=== PATIENT | female | born 1960 | race Caucasian/White ===

== ENCOUNTER 2019-07-31 10:36 | Inpatient (IN) ==
[2019-07-31] MEDS ORDERED: VANCOMYCIN PER PHARMACY IV ONE (11:41)
[2019-07-31] MEDS ORDERED: cefTRIAXone 1 GM VIAL IV ONE ×2 (11:41→17:44)
[2019-07-31] MEDS ORDERED: VANCOMYCIN 2,000 MG in 0.9 % SODIUM CHLORIDE 500 ML IV ONE (12:45)
[2019-07-31 13:23] LABS: Hematocrit 40.4 % (34.1-44.9); Hemoglobin 13.6 g/dL (11.2-15.7); Mean Cell Volume 104.7 fL (80.0-100.0); Mean Corpuscular HGB Conc 33.7 g/dL (31.0-36.0); Mean Platelet Volume 8.9 fL (7.4-10.4); Platelet Count 325 K/mcL (140-440); RBC 3.86 M/mcL (3.59-5.38); Red Cell Distribution Width 12.3 % (11.5-14.5); WBC 7.6 K/mcL (4.50-11.00)
[2019-07-31 13:41] LABS: ALT/SGPT 16 U/l (0-40); AST/SGOT 17 U/l (0-37); Albumin 3.4 gm/dL (3.2-5.2); Albumin/Globulin Ratio 1.7 (1.0-2.3); Alkaline Phosphatase 61 U/L (39-117); Bilirubin,Total 0.4 mg/dL (0.0-1.0); Blood Urea Nitrogen 10 mg/dl (6-20); Calcium 9.1 mg/dl (8.6-10.4); Carbon Dioxide 23 mmol/L (22-30); Chloride 98 mmol/L (96-108); Glomerular Filtration Rate 96; Glucose 113 mg/dL (70-105)
[2019-07-31] MEDS ORDERED: ONDANSETRON 4 MG/2 ML VIAL IV ONE (13:55)
--- NOTE | 2019-07-31 13:56 | Emergency Department Note ---
Recheck HPI - General Chief Complaint: Recheck/Abnormal Lab/Rx Stated Complaint: LLE Cellulitis Recheck Time Seen by Provider: 07/31/19 10:49 Source: patient Mode of arrival: wheelchair Limitations: no limitations - History of Present Illness HPI Narrative: 59-year-old female presents for recheck of cellulitis to left lower extremity. States despite 3 days of IV antibiotics, the redness has continued to spread. States she has been getting IV vancomycin therapy. Does not seem to be helping. No fever but has had chills last day or 2. No nausea, vomiting, or diarrhea. Does have significant redness, swelling, and warmth to the left lower extremity. Associated symptoms: chills - Related Data Home Medications Medication Instructions Recorded Confirmed DULoxetine HCL [Cymbalta] 60 mg PO BID 05/23/16 07/31/19 LORazepam [Ativan] 1 mg PO TIDP PRN 05/23/16 07/31/19 Lisinopril [Zestril] 10 mg PO DAILY 05/23/16 07/31/19 Montelukast Sodium [Singulair] 10 mg PO DAILY 05/23/16 07/31/19 metFORMIN [Glucophage] 100 mg PO [facility] 05/23/16 07/31/19 Hydrochlorothiazide [Oretic] 25 mg PO DAILY 07/28/19 07/31/19 Oxybutynin Chloride [Oxybutynin 15 mg PO DAILY 07/31/19 07/31/19 Chloride ER] Previous Rx's Medication Instructions Recorded Ondansetron [Zofran ODT] 4 mg SL Q4-6HP PRN #14 tab 07/21/19 Clindamycin HCl [Cleocin] 300 mg PO TID #30 cap 07/28/19 Allergies Allergy/AdvReac Type Severity Reaction Status Date / Time Bee Pollen Allergy Severe Anaphylaxis Verified 07/28/19 14:21 doxycycline Allergy Intermediate Redness of Verified 07/31/19 10:39 Skin latex Allergy Mild Rash Verified 07/28/19 14:21 Sulfa (Sulfonamide AdvReac Intermediate Other Verified 07/28/19 14:21 Antibiotics) Amoxicillin [From Augmentin] AdvReac Mild Vomiting Verified 07/28/19 14:21 clavulanic acid AdvReac Mild Vomiting Verified 07/28/19 14:21 [From Augmentin] Review of Systems All systems ED: reviewed and negative except as stated. Past Medical History - Past Medical History [facility] Narrative: Medical History (Last Updated 07/21/19 @ 17:05 by Florencio Bethea DO) Osteoarthritis (Chronic) History of pneumonia (Chronic) Depression, major, recurrent (Chronic) Anxiety, generalized (Chronic) Hypertension, essential (Chronic) Diabetes mellitus, type 2 (Chronic) Morbid obesity (Chronic) Cellulitis (Resolved) Past Surgical History (Last Updated 07/24/19 @ 17:25 by Florencio Bethea DO) History of Saskia-en-Y gastric bypass (Chronic) History of appendectomy (Acute) History of arthroscopy of knee (Acute) History of bilateral total hip arthroplasty (Acute) History of section (Acute) History of cholecystectomy (Acute) History of hysterectomy (Acute) History of total left knee replacement (TKR) (Acute) Medical history: Reports: DM, pneumonia, other. 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 Absent: conjunctival injection ENT: Present: mucous membranes moist Chest: Present: symmetric chest wall rise Respiratory: Present: normal lung sounds bilaterally. Absent: respiratory distress, rales/crackles, accessory muscle use Cardiovascular: Present: regular rate, normal heart sounds Extremities: Absent: normal inspection (left lower extremity from foot all the way up through left groin area with redness and warmth. Has some diffuse tenderness but no specific tenderness. Skin is intact. No drainage or weeping.) Neurological: Present: alert, oriented X3 Psychiatric: Present: normal affect, normal mood Skin: Present: warm, dry, erythema (Erythema throughout left lower extremity. Please see extremity assessment) Course Course Narrative: At 1430 I did speak with the hospitalist, Dr. Peters. He would like us to get a ultrasound and then call him back with results. If the results are negative he would like us to consult with Dr. Diaz with infectious disease. At 1540 I did get ultrasound results which were negative and call Dr. Diaz. He suggest ed that we admit the patient and do further work-up to determine whether or not this is cellulitis for sure as her white count is normal and her vital signs are stable. He suggested we get a CT scan of the lower extremity. I did call Dr. Peters back. He wants us to get a CT while here in the ER. @ 1750 Dr. peters accepts pt and Dr. Diaz will consult Vital Signs Temperature 98.3 F 07/31/19 10:42 Pulse Rate 87 07/31/19 10:42 Respiratory Rate 07/31/19 10:42 Blood Pressure 131/83 07/31/19 10:42 Pulse Oximetry (%) 97 07/31/19 10:42 Temperature 98.3 F 07/31/19 10:42 Pulse Rate 88 07/31/19 15:08 Respiratory Rate 19 07/31/19 14:15 Blood Pressure 127/55 07/31/19 15:08 Pulse Oximetry (%) 99 07/31/19 15:08 Recheck/Abnormal Lab/Rx - Lab Data Lab results reviewed: Yes I reviewed the patient's lab results. Result diagrams: 07/31/19 12:37 07/31/19 12:37 Lab Results 07/31/19 07/31/19 07/31/19 Range/Units 12:37 12:37 12:37 WBC 7.6 (4.50-11.00) K/mcL RBC 3.86 (3.59-5.38) M/mcL Hgb 13.6 (11.2-15.7) g/dL Hct 40.4 (34.1-44.9) % MCV 104.7 H (80.0-100.0) fL MCH 35.2 H (26.0-34.0) pg MCHC 33.7 (31.0-36.0) g/dL RDW 12.3 (11.5-14.5) % Plt Count 325 (140-440) K/mcL MPV 8.9 (7.4-10.4) fL Total Counted 100 Seg Neutrophils % 59 (38-78) % Band Neutrophils % Not Reportable Lymphocytes % 26 (15-49) % Monocytes % (Manual) 10 (1-12) % Eosinophils % (Manual) 5 (0-7) % Platelet Estimate Normal (NORMAL) RBC Morphology Ab' (NORMAL) Hypochromasia Few A (NONE SEEN) Macrocytosis 1+ A (NONE SEEN) VBG Lactic Acid 1.1 (0.5-2.0) mmol/L Sodium 133 (133-145) mmol/L Potassium 3.7 (3.3-5.1) mmol/L Chloride 98 (96-108) mmol/L Carbon Dioxide 23 (22-30) mmol/L Anion Gap 12.0 (8-16) BUN 10 (6-20) mg/dl Creatinine 0.7 (0.6-1.1) mg/dl GFR Calculation 96 Glucose 113 H (70-105) mg/dL Calcium 9.1 (8.6-10.4) mg/dl Total Bilirubin 0.4 (0.0-1.0) mg/dL AST 17 (0-37) U/l ALT 16 (0-40) U/l Alkaline Phosphatase 61 (39-117) U/L Total Protein 5.4 L (5.9-8.4) gm/dL Albumin 3.4 (3.2-5.2) gm/dL Globulin 2.0 L (2.2-3.7) gm/dL Albumin/Globulin Ratio 1.7 (1.0-2.3) - Radiology Data Radiology results reviewed: Yes I reviewed the patient's radiology results. 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
[2019-07-31 14:00] LABS: Eosinophils % (Manual) 5 % (0-7); Hypochromasia FEW (NONE SEEN); Lymphocytes % 26 % (15-49); Macrocytosis 1+ (NONE SEEN); Monocytes % (Manual) 10 % (1-12); Platelet Estimate NORMAL (NORMAL); RBC Morphology AB' (NORMAL); Segmented Neutrophils % 59 % (38-78)
--- NOTE | 2019-07-31 15:25 | Ultrasound Report ---
CLINICAL INFORMATION: Leg pain and swelling COMPARISON: None. FINDINGS: The entire deep venous system including the common femoral, superficial femoral, popliteal and paired trifurcation calf veins are easily compressible and show normal venous blood flow on color and spectral Doppler. No evidence of thrombus IMPRESSION: Negative exam - no evidence of deep vein thrombosis. Interpreted and Authenticated by: Indio Harris 07/31/19
--- NOTE | 2019-07-31 17:19 | Cat Scan Report ---
CLINICAL INFORMATION: difuse edema, redness and warmth COMPARISON: None. TECHNIQUE: 0.625 mm helical slices were obtained from the distal femoral metadiaphysis through the talar dome. Following reconstruction, 2.5 mm axial, sagittal and coronal reformatted images were processed and reviewed in bone and soft tissue windows. FINDINGS: There is marked diffuse edema or cellulitis confined to the subcutaneous fat throughout the calf and ankle. The anterior and posterior compartments including MUSCLE and fascial planes are unremarkable - no evidence of fasciitis or myositis. There is no discrete focal fluid collection. Bone windows show no evidence of osteomyelitis or other osseous abnormality. Total knee prosthesis anatomically aligned without loosening or infection. The ankle mortise and talocalcaneal joints are normal. IMPRESSION: Marked diffuse edema or cellulitis throughout the subcutaneous fat of the calf. There is no evidence of soft tissue abscess. The bones are normal - no evidence of osteomyelitis. Interpreted and Authenticated by: Indio Harris 07/31/19
--- NOTE | 2019-07-31 17:58 | Internal Med History&Physical ---
Medical - H&P: [facility] Patient information: Note initiated : 07/31/19 at 5:56 pm Service Date, if different from initiated Date: [] Patient: Catia Harper a 59 y/o F admitted on for LLE Cellulitis Recheck. Chief Complaint: [] History of present illness: Ms. Harper is a 59 year old F Presents the ED with continued redness of her left lower extremity. She was originally seen and started on doxycycline and added clindamycin was added. It appears she had a reaction to I believe the doxycyclinej. Also no si gnificant improvement after IV Vanco started. She continues to have redness which is extended. today was a f/u of her treatment. She denies any fevers. Nausea vomiting. She does feel it to be a little tender. She was originally seen in the ED a week ago for significant swelling and oozing of yellowish fluid. In the ED work-up showed a normal CBC and lactate. Chemistry was okay as well. Doppler ultrasound showed no DVT. A CT of the leg was reported as diffuse edema versus cellulitis throughout the subcutaneous fat of the calf. Patient discussed with Dr. Diaz. Patient is morbidly obese and has had a history of peripheral edema. She supposed to follow-up with the lymphedema clinic She reports a 9 pound water weight gain over the past couple weeks. Admit to pruritis Review of Systems: Pertinent positives as above. Denies headache/fever/chills/nausea/vomiting/chest or abdominal pain/cough/dyspnea/diarrhea. remaining 10 point review of system reviewed negative. Medical - H&P: [facility] Medical history: Medical History (Last Updated 07/21/19 @ 17:05 by Florencio Bethea DO) Osteoarthritis (Chronic) History of pneumonia (Chronic) Depression, major, recurrent (Chronic) Anxiety, generalized (Chronic) Hypertension, essential (Chronic) Diabetes mellitus, type 2 (Chronic) Morbid obesity (Chronic) Cellulitis (Resolved) Past Surgical History (Last Updated 07/24/19 @ 17:25 by Florencio Bethea DO) History of Saskia-en-Y gastric bypass (Chronic) History of appendectomy (Acute) History of arthroscopy of knee (Acute) History of bilateral total hip arthroplasty (Acute) History of section (Acute) History of cholecystectomy (Acute) History of hysterectomy (Acute) History of total left knee replacement (TKR) (Acute) Family history: Mother diabetes Father had CAD Social History Patient quit smoking several weeks ago Has 6 drinks of alcohol per week Ambulates using a walker and a wheelchair outside the house Lives at home with son Medical - H&P: Meds Home Medications Medication Instructions Recorded Confirmed Type DULoxetine HCL [Cymbalta] 60 mg PO BID 05/23/16 07/31/19 History LORazepam [Ativan] 1 mg PO TIDP PRN 05/23/16 07/31/19 History Lisinopril [Zestril] 10 mg PO DAILY 05/23/16 07/31/19 History Montelukast Sodium [Singulair] 10 mg PO DAILY 05/23/16 07/31/19 History metFORMIN [Glucophage] 100 mg PO QAC 05/23/16 07/31/19 History Ondansetron [Zofran ODT] 4 mg SL Q4-6HP PRN #14 tab 07/21/19 07/31/19 Rx Clindamycin HCl [Cleocin] 300 mg PO TID #30 cap 07/28/19 07/31/19 Rx Hydrochlorothiazide [Oretic] 25 mg PO DAILY 07/28/19 07/31/19 History Oxybutynin Chloride [Oxybutynin 15 mg PO DAILY 07/31/19 07/31/19 History Chloride ER] Allergies Allergy/AdvReac Type Severity Reaction Status Date / Time Bee Pollen Allergy Severe Anaphylaxis Verified 07/28/19 14:21 doxycycline Allergy Intermediate Redness of Verified 07/31/19 10:39 Skin latex Allergy Mild Rash Verified 07/28/19 14:21 Sulfa (Sulfonamide AdvReac Intermediate Other Verified 07/28/19 14:21 Antibiotics) Amoxicillin [From Augmentin] AdvReac Mild Vomiting Verified 07/28/19 14:21 clavulanic acid AdvReac Mild Vomiting Verified 07/28/19 14:21 [From Augmentin] Medical - H&P: Exam - Constitutional Vitals: Temp Pulse Resp BP Pulse Ox 98.3 F 88 19 127/55 99 07/31/19 10:42 07/31/19 15:08 07/31/19 14:15 07/31/19 15:08 07/31/19 15:08 Exam: General: Alert, Awake, No acute Distress, obese Eyes/N/T: EOMI, PERRL, MMM Head/Neck: neck supple, normocephalic atraumatic CV: RRR, No murmurs, normal s1/s2 Pulm: Clear b/l, no wheezing/rhonchi/rales Abd: soft, nontender, +BS x4 Ext: no clubbing/cyanosis. b/l LE edema. LLE erythematous from ankle to mid- thigh/mildly warm to touch/minimal tenderness/edematous Neuro: Alert, no focal deficits, moves all extremities, CN 2-12 grossly intact, symmetrical strength b/l upper/lower, sensations intact b/l upper/lower Skin: warm/dry Medical - H&P: Reslt - Labs CBC & Chem 7: 07/31/19 12:37 07/31/19 12:37 Labs: Short CBC 07/31/19 Range/Units 12:37 WBC 7.6 (4.50-11.00) K/mcL Hgb 13.6 (11.2-15.7) g/dL Hct 40.4 (34.1-44.9) % Plt Count 325 (140-440) K/mcL BMP 07/31/19 12:37 Sodium 133 Potassium 3.7 Chloride 98 Carbon Dioxide 23 BUN 10 Creatinine 0.7 Glucose 113 H Calcium 9.1 Liver Function 07/31/19 Range/Units 12:37 Total Bilirubin 0.4 (0.0-1.0) mg/dL AST 17 (0-37) U/l ALT 16 (0-40) U/l Alkaline Phosphatase 61 (39-117) U/L Albumin 3.4 (3.2-5.2) gm/dL Medical - H&P: A/P - Narrative A/P Narrative: A: *LLE cellulitis vs Likely Venous stasis dermatitis or venous stasis derm w/seco ndary cellulitis: no response to outpt abx -clinical picture points more towards venous dermatitis *Morbid Obesity: *Lymphedema: *DM: *HTN: *Asthma *Anxiety/depression: * P: -Vanco/Rocephin -ID consult -Elevate leg, compression wraps, topical corticosteroids -cont diuretics -home metformin and SSI - -pt/ot -ppx: lovenox full code
[2019-07-31] MEDS ORDERED: MAGNESIUM SULFATE 2 GM/50 ML BAG IV PRN (19:37)
[2019-07-31] MEDS ORDERED: POTASSIUM CHLORIDE 40 MEQ in DEXTROSE 5% IN WATER 500 ML IV PRN (19:37)
[2019-07-31] MEDS ORDERED: POTASSIUM CHLORIDE 20 MEQ TABLET PO PRN ×2 (19:37)
[2019-07-31] MEDS ORDERED: FUROSEMIDE 40 MG/4 ML VIAL IV ONE (19:37)
[2019-07-31] MEDS ORDERED: ONDANSETRON 4 MG/2 ML VIAL IV PRN (19:37)
[2019-07-31] MEDS ORDERED: DEXTROSE 31 GM ORAL.SUSP PO PRN (19:37)
[2019-07-31] MEDS ORDERED: POLYETHYLENE GLYCOL 3350 17 GM PACKET PO PRN (19:37)
[2019-07-31] MEDS ORDERED: DEXTROSE 50% 50 ML VIAL IV PRN (19:37)
[2019-07-31] MEDS ORDERED: SENNOSIDES 1 TABLET PO PRN (19:37)
[2019-07-31] MEDS ORDERED: VANCOMYCIN PER PHARMACY IV SCH (19:37)
[2019-07-31] MEDS: 0.9 % SODIUM CHLORIDE 10 ML SYRINGE IV SCH (20:25)
[2019-07-31] MEDS: ENOXAPARIN 40 MG/0.4 ML SYRINGE SQ SCH (20:25)
[2019-07-31] MEDS: DULoxetine 30 MG CAPSULE PO SCH ×2 (20:25→20:34)
[2019-07-31] MEDS: INSULIN LISPRO 1 UNIT/0.01 ML UNIT SQ SCH (20:28)
[2019-07-31] MEDS: LORazepam 1 MG TABLET PO PRN (20:30)
[2019-07-31] MEDS ORDERED: TRIAMCINOLONE CREAM 0.1% 15G 1 DOSE TUBE TOPICAL ONE (20:36)
[2019-07-31] MEDS: TRIAMCINOLONE CRM 0.5% TUBE 15GM TOPICAL SCH (21:40)
[2019-08-01] MEDS: diphenhydrAMINE 25 MG CAPSULE PO PRN ×3 (01:23→13:03)
[2019-08-01] MEDS: ACETAMINOPHEN 325 MG TABLET PO PRN ×3 (01:23→20:25)
[2019-08-01] MEDS: 0.9 % SODIUM CHLORIDE 10 ML SYRINGE IV SCH ×3 (04:21→22:28)
[2019-08-01 06:50] LABS: Basophils # (Auto) 0.05 K/mcL (0.00-0.30); Basophils % (Auto) 0.6 % (0.0-2.0); Eosinophils # (Auto) 0.38 K/mcL (0.00-0.70); Eosinophils % (Auto) 4.9 % (0.0-7.0); Granulocytes % (Auto) 61.5 % (38.0-78.0); Hematocrit 37.6 % (34.1-44.9); Hemoglobin 12.6 g/dL (11.2-15.7); Lymphocytes # (Auto) 1.59 K/mcL (1.50-4.80); Lymphocytes % (Auto) 20.6 % (15.5-49.0); Mean Cell Volume 106.2 fL (80.0-100.0); Mean Corpuscular HGB Conc 33.5 g/dL (31.0-36.0); Mean Platelet Volume 9.1 fL (7.4-10.4); Monocytes # (Auto) 0.96 K/mcL (0.10-0.90); Monocytes % (Auto) 12.4 % (1.0-12.0); Platelet Count 313 K/mcL (140-440); RBC 3.54 M/mcL (3.59-5.38); Red Cell Distribution Width 12.5 % (11.5-14.5); WBC 7.7 K/mcL (4.50-11.00)
[2019-08-01] MEDS: INSULIN LISPRO 1 UNIT/0.01 ML UNIT SQ SCH ×4 (06:54→20:15)
--- NOTE | 2019-08-01 07:06 | Internal Med Progress Note ---
Medical - PN: Subj Patient information: Note initiated : 08/01/19 at 7:04 am Service Date, if different from initiated Date: [] Patient: Catia Harper a 59 y/o F admitted on 07/31/19 for LLE Cellulitis Recheck. Chief Complaint: [] Interval history: Ms. Harper is a 59 year old F Presents the ED with continued redness of her left lower extremity. She was originally seen and started on doxycycline and added clindamycin was added. It appears she had a reaction to I believe the doxycyclinej. Also no sig nificant improvement after IV Vanco started. She continues to have redness which is extended. today was a f/u of her treatment. She denies any fevers. Nausea vomiting. She does feel it to be a little tender. She was originally seen in the ED a week ago for significant swelling and oozing of yellowish fluid. In the ED work-up showed a normal CBC and lactate. Chemistry was okay as well. Doppler ultrasound showed no DVT. A CT of the leg was reported as diffuse edema versus cellulitis throughout the subcutaneous fat of the calf. Patient discussed with Dr. Diaz. Patient is morbidly obese and has had a history of peripheral edema. She supposed to follow-up with the lymphedema clinic She reports a 9 pound water weight gain over the past couple weeks. Admit to pruritis / No overnight event or new complaints. Review of Systems: denies headache/fever/chills/nausea/vomiting/chest or abdominal pain/cough/dyspnea/diarrhea. Otherwise see above. - Constitutional Vitals: Vital Signs Temp Pulse Resp BP Pulse Ox 98.3 F 93 H 18 91/54 93 08/01/19 03:58 08/01/19 03:58 08/01/19 03:58 08/01/19 03:58 08/01/19 03:58 Period Temp Pulse Resp BP Sys/Minaya Pulse Ox Last 24 Hr 98.0 F-98.3 F 82-95 18-22 91-131/54-83 93-100 Intake and Output 07/31/19 08/01/19 08/01/19 21:59 05:59 13:59 Intake Total 500 200 Output Total 350 650 Balance 150 -450 Weight 170.732 kg Intake & Output: Intake & Output 07/31/19 08/01/19 08/01/19 21:59 05:59 13:59 Intake Total 500 200 Output Total 350 650 Balance 150 -450 Weight 170.732 kg Intake: IV 500 Vancomycin 2,000 mg In Sodium 500 Chloride 0.9% 500 ml @ 250 mls/ hr IV ONCE ONE Rx#:[id number] Oral 200 Output: Void Amount 350 650 Other: Urine Appearance Clear Clear Urine Color Bright Yellow Bright Yellow Exam: General: Alert, Awake, No acute Distress, obese Eyes/N/T: EOMI, Head/Neck: neck supple, CV: RRR, No murmurs, normal s1/s2 Pulm: Clear b/l, no wheezing/rhonchi/rales Abd: soft, nontender, +BS x4 Ext: no clubbing/cyanosis. b/l LE edema. LLE erythematous from ankle to mid- thigh/not particularly warm to touch/nontender Neuro: Alert, no focal deficits, moves all extremities, Skin: warm/dry Medical - PN: Obj Da - Labs CBC & Chem 7: 08/01/19 04:46 08/01/19 04:46 Labs: Abnormal Lab Results 08/01/19 07/31/19 07/31/19 04:46 12:37 12:37 RBC 3.54 L MCV 106.2 H MCH 35.6 H [place] % (Auto) 12.4 H [place] # (Auto) 0.96 H Hypochromasia Macrocytosis Glucose 113 H C-Reactive Protein 1.0 H Total Protein 5.4 L Globulin 2.0 L 07/31/19 12:37 RBC MCV 104.7 H MCH 35.2 H [place] % (Auto) [place] # (Auto) Hypochromasia Few A Macrocytosis 1+ A Glucose C-Reactive Protein Total Protein Globulin Meds: Medications Acetaminophen (Tylenol) 650 mg PO Q6HP PRN PRN Reason: PAIN/FEVER > 101 Last Admin: 08/01/19 01:23 Dose: 650 mg Documented by: Dextrose (Dextrose 50%) 0 ml IV UD PRN PRN Reason: Hypoglycemia Diagnostic Test (Pha) (Accu-Chek) 1 each FS ACHS JOSH Last Admin: 08/01/19 06:54 Dose: 1 each Documented by: Diphenhydramine HCl (Benadryl) 25 mg PO Q4-6HP PRN PRN Reason: Allergic Symptoms Last Admin: 08/01/19 01:23 Dose: 25 mg Documented by: Duloxetine HCl (Cymbalta) 60 mg PO BID [facility] Last Admin: 07/31/19 20:34 Dose: Not Given Documented by: Enoxaparin Sodium (Lovenox) 40 mg SQ BID [facility] Last Admin: 07/31/19 20:25 Dose: 40 mg Documented by: Glucose (Insta-Glucose) 15 gm PO PRN PRN PRN Reason: Hypoglycemia Hydrochlorothiazide (Oretic) 25 mg PO DAILY [facility] Ceftriaxone Sodium 2 gm/ (Dextrose) 50 mls @ 100 mls/hr IV Q24H [facility]; Protocol Potassium Chloride 40 meq/ (Dextrose) 520 mls @ 130 mls/hr IV UD PRN PRN Reason: Potassium < 3 Magnesium Sulfate (Magnesium Sulfate) 2 gm in 50 mls @ 50 mls/hr IV UD PRN PRN Reason: Magnesium </= 1.6 Vancomycin HCl 1,500 mg/ (Sodium Chloride) 500 mls @ 333.3 mls/hr IV Q12H [facility] Insulin Human Lispro (Humalog) 0 unit SQ ACHS [facility]; Protocol Last Admin: 08/01/19 06:54 Dose: Not Given Documented by: Lisinopril (Zestril) 10 mg PO DAILY [facility] Lorazepam (Ativan) 1 mg PO TIDP PRN PRN Reason: Anxiety Last Admin: 07/31/19 20:30 Dose: 1 mg Documented by: Met[facility] ([facility]ophage) [facility] Montelukast Sodium (Singular) 10 mg PO DAILY [facility] Ondansetron HCl (Zofran) 4 mg IV Q4HP PRN PRN Reason: Nausea And Vomiting Oxybutynin Chloride (Ditropan Xl) 15 mg PO DAILY [facility] Pneumococcal Polyvalent Vaccine (Pneumovax 23) 0.5 ml IM .ONCE ONE Stop: 08/01/19 10:01 Polyethylene Glycol (Miralax) 17 gm PO DAILYP PRN PRN Reason: Constipation Potassium Chloride (Kdur) 40 meq PO UD PRN PRN Reason: Potssium is 3-3.5 Potassium Chloride (Kdur) 40 meq PO UD PRN PRN Reason: Potassium < 3 Senna (Senokot) 2 tab PO DAILYP PRN PRN Reason: Constipation Sodium Chloride (Saline Flush) 10 ml IV Q8 [facility] Last Admin: 08/01/19 04:21 Dose: 10 ml Documented by: Triamcinolone Acetonide (Kenalog Crm 0.5%) 1 dose TOPICAL BID [facility] Last Admin: 07/31/19 21:40 Dose: Not Given Documented by: Vancomycin HCl (Vancomycin Per Pharmacy) 1 order IV UD [facility]; Protocol Medical - PN: A/P - Time Spent With Patient Total time spent is greater than 50% in coordination of care (as documented) at patient's floor/unit and/or counseling patient: - Narrative A/P Narrative: A: *LLE cellulitis vs Likely Venous stasis dermatitis or venous stasis derm w/secondary cellulitis: no response to outpt abx -clinical picture points more towards venous dermatitis *Morbid Obesity: *Lymphedema: *DM: *HTN: *Asthma *Anxiety/depression: * P: -Vanco/Rocephin -ID consult -Elevate leg, compression wraps, topical corticosteroids -cont diuretics -home metformin and SSI - -pt/ot -ppx: lovenox full code Medical - PN: Qual - VTE Deep Vein Thrombosis/Pulmonary Embolism Present on Admission: No
[2019-08-01 07:10] LABS: Bilirubin,Direct < 0.2 mg/dL (0.0-0.3)
[2019-08-01 07:12] LABS: ALT/SGPT 13 U/l (0-40); AST/SGOT 15 U/l (0-37); Albumin 3.1 gm/dL (3.2-5.2); Albumin/Globulin Ratio 1.6 (1.0-2.3); Alkaline Phosphatase 50 U/L (39-117); Bilirubin,Total 0.3 mg/dL (0.0-1.0); Blood Urea Nitrogen 12 mg/dl (6-20); Calcium 9.1 mg/dl (8.6-10.4); Carbon Dioxide 24 mmol/L (22-30); Chloride 101 mmol/L (96-108); Globulin 1.9 gm/dL (2.2-3.7); Glomerular Filtration Rate 62; Glucose 99 mg/dL (70-105); Phosphorous 3.7 mg/dL (2.7-4.5); Triglycerides 76 mg/dl (<150); Uric Acid 7.8 mg/dL (2.5-8.0)
[2019-08-01 07:52] LABS: Lactate Dehydrogenase 201 U/L (94-250)
[2019-08-01] MEDS: metFORMIN 500 MG TAB.XL.24H PO SCH (08:42)
[2019-08-01] MEDS: cefTRIAXone 2 GM in DEXTROSE 5% IN WATER 50 ML IV SCH (08:44)
[2019-08-01] MEDS ORDERED: LISINOPRIL 10 MG TABLET PO SCH (09:00)
[2019-08-01] MEDS: VANCOMYCIN 1,500 MG in 0.9 % SODIUM CHLORIDE 500 ML IV SCH ×2 (09:08→20:24)
[2019-08-01] MEDS: DULoxetine 30 MG CAPSULE PO SCH ×2 (09:09→20:25)
[2019-08-01] MEDS: ENOXAPARIN 40 MG/0.4 ML SYRINGE SQ SCH ×2 (09:09→20:24)
[2019-08-01] MEDS: MONTELUKAST 10 MG TABLET PO SCH (09:09)
[2019-08-01] MEDS: OXYBUTYNIN CHLORIDE 5 MG TAB.XL.24H PO SCH (09:09)
[2019-08-01] MEDS: TRIAMCINOLONE CRM 0.5% TUBE 15GM TOPICAL SCH ×2 (09:09→20:24)
[2019-08-01] MEDS: HYDROCHLOROTHIAZIDE 25 MG TABLET PO SCH (09:09)
[2019-08-01] MEDS ORDERED: PNEUMOCOCCAL 23-VAL P-SAC VAC 0.5 ML SYRINGE IM ONE (10:00)
--- NOTE | 2019-08-01 13:27 | Infectious Disease Consult ---
History of Present Illness Patient information: Note initiated : 08/01/19 at 1:25 pm Service Date, if different from initiated Date: [] Patient: Catia Harper 59 y/o F admitted on 07/31/19 for LLE Cellulitis Recheck. Chief Complaint: [] Consult date: 08/01/19 Requesting Physician: Pierre Whitehead Reason for Consult: left leg cellulitis Chief complaint: my legs are swollen and hurt History of present illness: 59-year-old lady admitted to [facility] from the ER on 07/31/2019 after presenting for multiple times in last 2 weeks with complaints of left lower extremity swelling and redness concerning for cellulitis. Patient initially presented on 07/21/2019 with complaints of 3-day history of red, swollen, hot left lower extremity with some yellow fluid oozing and difficulty walking. She was afebrile, had a normal white cell count [8.9k] and she was prescribed p.o. doxycycline for a 7-day course and sent home. Patient came back on 07/28/2019 with complaints of rash all over her body along with itching and perception that her cellulitis has gotten worse instead of better. Patient was also afebrile, had a normal white cell count of 8.5k with normal eosinophil count. Her doxycycline was stopped and she was switched to p.o. clindamycin 300 mg every 8 hours along with daily vancomycin injections. Patient came back again on 07/31/2019 with complaints of that redness has continued to spread and some chills. At admission: Vital signs: Temperature 98.3 F, heart rate 87, blood pressure 131/83, respiratory rate 20, satting 97% on room air Labs: WBC 7.6K: Lactic acid 1.1, eosinophils 5%, creatinine 0.7 CT of left lower extremity was done which showed no abscesses or fluid collections, but did show marked diffuse edema throughout the subcutaneous fat of the calf, no evidence of osteomyelitis. No evidence of DVT on ultrasound of left lower extremity. Patient was started on IV vancomycin and IV ceftriaxone, blood culture sent. At time of visit, patient confirmed above history. Added that she is itching a lot and it is worse at night. She denied any sick contacts or similar compla ints in family members. She does endorse history of chronic leg swelling and redness involving lower part of the legs. Mentions that her itching has been worse after being on doxycycline and she break out into a rash which was not there before. She denies any oral lesions. Denies any trauma, contact with any pets. Review of Systems All systems PM: reviewed and no additional remarkable complaints except as stated Constitutional: as per HPI Past History Past medical history: Osteoarthritis (Chronic) Depression, major, recurrent (Chronic) Anxiety, generalized (Chronic) Hypertension, essential (Chronic) Diabetes mellitus, type 2 (Chronic) Morbid obesity (Chronic) Past surgical history: History of Saskia-en-Y gastric bypass (Chronic) History of appendectomy (Acute) History of arthroscopy of knee (Acute) History of bilateral total hip arthroplasty (Acute) History of section (Acute) History of cholecystectomy (Acute) History of hysterectomy (Acute) History of total left knee replacement (TKR) (Acute) Past family history: lives in 3 bedroom [facility] home in [place], [place] Past social history: Patient quit smoking several weeks ago Has 6 drinks of alcohol per week Ambulates using a walker and a wheelchair outside the house Lives at home with son Medications and Allergies Home Medications Medication Instructions Recorded Confirmed Type DULoxetine HCL [Cymbalta] 120 mg PO DAILY 05/23/16 08/01/19 History LORazepam [Ativan] 1 mg PO TIDP PRN 05/23/16 08/01/19 History Lisinopril [Zestril] 10 mg PO DAILY 05/23/16 08/01/19 History Montelukast Sodium [Singulair] 10 mg PO DAILY 05/23/16 08/01/19 History metFORMIN [Glucophage] 500 mg PO [facility] 05/23/16 08/01/19 History Ondansetron [Zofran ODT] 4 mg SL Q4-6HP PRN #14 tab 07/21/19 07/31/19 Rx Hydrochlorothiazide [Oretic] 25 mg PO DAILY 07/28/19 08/01/19 History Oxybutynin Chloride [Oxybutynin 15 mg PO DAILY 07/31/19 08/01/19 History Chloride ER] Triamcinolone Acetonide 80 gm TP BID #1 tube 08/01/19 Rx Dalbavancin HCl [Dalvance] 1,500 mg IV ONCE #1 vial 08/02/19 Rx Allergies Allergy/AdvReac Type Severity Reaction Status Date / Time Bee Pollen Allergy Severe Anaphylaxis Verified 07/28/19 14:21 doxycycline Allergy Intermediate Redness of Verified 07/31/19 10:39 Skin latex Allergy Mild Rash Verified 07/28/19 14:21 Sulfa (Sulfonamide AdvReac Intermediate Other Verified 07/28/19 14:21 Antibiotics) Amoxicillin [From Augmentin] AdvReac Mild Vomiting Verified 07/28/19 14:21 clavulanic acid AdvReac Mild Vomiting Verified 07/28/19 14:21 [From Augmentin] Physical Examination Vital signs: Temp Pulse Resp BP Pulse Ox 36.1 C 78 22 92/54 94 08/01/19 12:00 08/01/19 12:00 08/01/19 12:00 08/01/19 12:00 08/01/19 12:00 General appearance: no acute distress Eyes pulmonary: nonicteric ENT: oropharynx moist (no thrush, no caries), other Integumentary: rash, erythema, cellulitis, other (has multiple patches of scaly rash over her both upper extremities, left leg is red from foot till lower thigh, no open ulceration or drainage, temperature similar to surrounding skin) Extremities: edema (left > right) Results - Laboratory Findings CBC and BMP: 08/01/19 04:46 08/01/19 04:46 Abnormal lab findings: Abnormal Labs 07/31/19 07/31/19 07/31/19 12:37 12:37 12:37 RBC MCV 104.7 H MCH 35.2 H [place] % (Auto) [place] # (Auto) Hypochromasia Few A Macrocytosis 1+ A Glucose 113 H C-Reactive Protein 1.0 H Total Protein 5.4 L Albumin Globulin 2.0 L 08/01/19 08/01/19 04:46 04:46 RBC 3.54 L MCV 106.2 H MCH 35.6 H [place] % (Auto) 12.4 H [place] # (Auto) 0.96 H Hypochromasia Macrocytosis Glucose C-Reactive Protein Total Protein 5.0 L Albumin 3.1 L Globulin 1.9 L Microbiology: Microbiology 08/01/19 11:57 Skin Parasite Identification - Final Assessment and Plan - Narrative A/P Narrative: A: 1. Left lower extremity cellulitis: - redness, swelling, tenderness suggest the diagnosis. Confirmed on CT. - no danger signs such as necrosis, fever, spreading cellulitis, osteomyelitis - risk factors of b/l stasis dermatitis, LE edema, obesity, poor hygiene, dry skin - Single dose Dalbavancin should be adequate along with leg elevation & ice packs. 2. Itching with widespread skin rash: no mucosal inv - could be due to recent allergic reaction to antibiotics (Doxycycline) - testing for scabies negative (skin scrapings), plus no inv of webspaces 3. Screening for MRSA colonization: MRSA nasal PCR neg Recommendations: - Stop IV vanc and IV ceftriaxone - Stop contact precautions for scabies - IV Dalbavancin 1500 mg single dose to be given at the infusion center tomorrow - Dermatology referral for skin rash. Pt might benefit from PO Cetirizine and topical emollients until seen - leg elevation, cold compresses to help decrease the inflammation - f/u with Lymphedema specialist (appt scheduled at [facility] tomorrow) Plan d/w Dr Whitehead and pt. Ellis Diaz MD Infectious diseases
--- NOTE | 2019-08-01 15:46 | Discharge Summary ---
Medical - DS: Prov Patient information: Note initiated : 08/01/19 at 3:36 pm Service Date, if different from initiated Date: [] Patient: Catia Harper 59 y/o F admitted on 07/31/19 for LLE Cellulitis Recheck. Chief Complaint: [] Date of admission: 07/31/19 19:37 Discharge date: 08/02/19 Consults: 07/31/19 Consult to Infectious Disease [CONS] Stat Comment: Consulting Provider: Ellis Diaz Reason For Exam: Physician to Consult Consult to Physician [CONS] Stat Comment: Consulting Provider: Pierre Whitehead Reason For Exam: Physician to Consult Medical - DS: Meds - Discharge Medications Prescriptions: Triamcinolone Acetonide 80 gm TP BID #1 tube Active and Home Medications: Home Medications DULoxetine HCL [Cymbalta] 120 mg PO DAILY 05/23/16 [History Confirmed 08/01/19 Last Taken 07/31/19 09:00 120 mg.] LORazepam [Ativan] 1 mg PO TIDP PRN 05/23/16 [History Confirmed 08/01/19 Last Taken 07/30/19 08:00 1 mg.] Lisinopril [Zestril] 10 mg PO DAILY 05/23/16 [History Confirmed 08/01/19 Last Taken 07/31/19 09:00 10 mg.] Montelukast Sodium [Singulair] 10 mg PO DAILY 05/23/16 [History Confirmed 08/01/19 Last Taken 07/31/19 09:00 10 mg.] metFORMIN [Glucophage] 500 mg PO [facility] 05/23/16 [History Confirmed 08/01/19 Last Taken 07/31/19 08:00 500 mg.] Ondansetron [Zofran ODT] 4 mg SL Q4-6HP PRN #14 tab 07/21/19 [Rx Confirmed 07/31/19 Last Taken 07/27/19 07:00] Clindamycin HCl [Cleocin] 300 mg PO TID #30 cap 07/28/19 [Rx Confirmed 08/01/19 Last Taken 07/31/19 09:00 300 mg.] Hydrochlorothiazide [Oretic] 25 mg PO DAILY 07/28/19 [History Confirmed 08/01/19 Last Taken 07/31/19 09:00 25 mg.] Oxybutynin Chloride [Oxybutynin Chloride ER] 15 mg PO DAILY 07/31/19 [History Confirmed 08/01/19 Last Taken 07/31/19 09:00 15 mg.] Home Medications DULoxetine HCL [Cymbalta] 120 mg PO DAILY 05/23/16 [History Confirmed 08/01/19 Last Taken 07/31/19 09:00 120 mg.] LORazepam [Ativan] 1 mg PO TIDP PRN 05/23/16 [History Confirmed 08/01/19 Last Taken 07/30/19 08:00 1 mg.] Lisinopril [Zestril] 10 mg PO DAILY 05/23/16 [History Confirmed 08/01/19 Last Taken 07/31/19 09:00 10 mg.] Montelukast Sodium [Singulair] 10 mg PO DAILY 05/23/16 [History Confirmed 08/01/19 Last Taken 07/31/19 09:00 10 mg.] metFORMIN [Glucophage] 500 mg PO [facility] 05/23/16 [History Confirmed 08/01/19 Last Taken 07/31/19 08:00 500 mg.] Ondansetron [Zofran ODT] 4 mg SL Q4-6HP PRN #14 tab 07/21/19 [Rx Confirmed 07/31/19 Last Taken 07/27/19 07:00] Hydrochlorothiazide [Oretic] 25 mg PO DAILY 07/28/19 [History Confirmed 08/01/19 Last Taken 07/31/19 09:00 25 mg.] Oxybutynin Chloride [Oxybutynin Chloride ER] 15 mg PO DAILY 07/31/19 [History Confirmed 08/01/19 Last Taken 07/31/19 09:00 15 mg.] Triamcinolone Acetonide 80 gm TP BID #1 tube 08/01/19 [Rx Last Taken Unknown] Medical - DS: Hosp Hospital Course: Ms. Harper is a 59 year old F Presents the ED with continued redness of her left lower extremity. She was originally seen and started on doxycycline and added clindamycin was added. It appears she had a reaction to I believe the doxycyclinej. Also no significant improvement after IV Vanco started. She continues to have redness which is extended. today was a f/u of her treatment. She denies any fevers. Nausea vomiting. She does feel it to be a little tender. She was originally seen in the ED a week ago for significant swelling and oozing of yellowish fluid. In the ED work-up showed a normal CBC and lactate. Chemistry was okay as well. Doppler ultrasound showed no DVT. A CT of the leg was reported as diffuse edema versus cellulitis throughout the subcutaneous fat of the calf. Patient discussed with Dr. Diaz. Patient is morbidly obese and has had a history of peripheral edema. She supposed to follow-up with the lymphedema clinic She reports a 9 pound water weight gain over the past couple weeks. Admit to pruritis 07/31 No overnight event or new complaints. 08/01 Patient doing well. No new complaints. Leg looking better, less red. Nontender. Continuing topical corticosteroid. Patient will follow up with lymphedema clinic and terminologist. A: A: *LLE cellulitis vs Likely Venous stasis dermatitis or venous stasis derm w/secondary cellulitis: no response to outpt abx *Morbid Obesity: *Lymphedema: *DM: *HTN: *Asthma Discharge diagnosis: Cellulitis venous stasis dermatitis obesity lymphedema diabetes Secondary discharge diagnosis: Hypertension asthma - Time Spent with Patient Total time spent providing and/or coordinating discharge services: Greater than 30 minutes Medical - DS: Exam - Constitutional Vitals: Vital Signs Temp Pulse Pulse Resp BP BP BP 08/01/19 12:00 97.0 F 78 22 92/54 08/01/19 08:00 97.5 F 77 20 93/57 08/01/19 03:58 98.3 F 93 H 18 91/54 08/01/19 00:37 98.0 F 92 H 20 120/67 07/31/19 20:03 98.0 F 82 22 110/64 07/31/19 19:41 98.3 F 86 20 131/83 07/31/19 18:37 86 20 116/59 Pulse Ox 08/01/19 12:00 94 08/01/19 08:00 94 08/01/19 03:58 93 08/01/19 00:37 95 07/31/19 20:03 96 07/31/19 19:41 100 07/31/19 18:37 100 Intake and Output 08/01/19 08/01/19 08/01/19 05:59 13:59 21:59 Intake Total 200 1800 Output Total 650 450 Balance -450 1350 Intake: Oral 200 1800 Output: Void Amount 650 450 Other: Meal Lunch Percent of Meal Consumed 75% Feeding Ability Independent Urine Appearance Clear Urine Color Bright Yellow Weight 170.732 kg Patient Weight 08/02/19 05:59 Weight 170.732 kg Medical - DS: Data Labs on day of discharge: Labs from last 24 hours 08/01/19 08/01/19 08/01/19 11:25 11:25 04:46 WBC RBC Hgb Hct MCV MCH MCHC RDW Plt Count MPV Gran % Lymph % (Auto) [place] % (Auto) Eos % (Auto) Baso % (Auto) Gran # Lymph # (Auto) [place] # (Auto) Eos # (Auto) Baso # (Auto) ESR Sodium 137 Potassium 3.5 Chloride 101 Carbon Dioxide 24 Anion Gap 12.0 BUN 12 Creatinine 1.0 GFR Calculation 62 Glucose 99 Uric Acid 7.8 Calcium 9.1 Phosphorus 3.7 Magnesium 1.8 Total Bilirubin 0.3 Direct Bilirubin < 0.2 GGT 13 AST 15 ALT 13 Alkaline Phosphatase 50 Lactate Dehydrogenase 201 C-Reactive Protein Total Protein 5.0 L Albumin 3.1 L Globulin 1.9 L Albumin/Globulin Ratio 1.6 Triglycerides 76 Miscellaneous Test 08/01/19 07/31/19 07/31/19 04:46 12:37 12:37 WBC 7.7 RBC 3.54 L Hgb 12.6 Hct 37.6 MCV 106.2 H MCH 35.6 H MCHC 33.5 RDW 12.5 Plt Count 313 MPV 9.1 Gran % 61.5 Lymph % (Auto) 20.6 [place] % (Auto) 12.4 H Eos % (Auto) 4.9 Baso % (Auto) 0.6 Gran # 4.75 Lymph # (Auto) 1.59 [place] # (Auto) 0.96 H Eos # (Auto) 0.38 Baso # (Auto) 0.05 ESR 6 Sodium Potassium Chloride Carbon Dioxide Anion Gap BUN Creatinine GFR Calculation Glucose Uric Acid Calcium Phosphorus Magnesium Total Bilirubin Direct Bilirubin GGT AST ALT Alkaline Phosphatase Lactate Dehydrogenase C-Reactive Protein 1.0 H Total Protein Albumin Globulin Albumin/Globulin Ratio Triglycerides Miscellaneous Test Preliminary micro results at discharge 07/31/19 12:37 Blood Culture - Preliminary Blood 07/31/19 12:58 Blood Culture - Preliminary Blood Medical - DS: A/P - Patient/Caregiver Discharge Instructions Activity: increase activity as tolerated Diet: Consistent Carbohydrate Additional Instructions: referral to see [employer] Machine Operator in 2-10 days Follow-up with lymphedema clinic. Prescriptions: Triamcinolone Acetonide 80 gm TP BID #1 tube - Follow up Plan Disposition: Home, Self-Care Prognosis: Fair Rehab Potential: Fair Overall status at discharge: patient is progressing back to baseline Medical - DS: Qual - VTE Deep Vein Thrombosis/Pulmonary Embolism Present on Admission: No
[2019-08-01] MEDS: LORazepam 1 MG TABLET PO PRN (20:25)
[2019-08-02] MEDS: ACETAMINOPHEN 325 MG TABLET PO PRN (02:29)
[2019-08-02] MEDS: 0.9 % SODIUM CHLORIDE 10 ML SYRINGE IV SCH (05:33)
[2019-08-02] MEDS ORDERED: FUROSEMIDE 40 MG/4 ML VIAL IV ONE (07:08)
[2019-08-02] MEDS ORDERED: ALBUMIN HUMAN 12.5 GM/50 ML BAG IV ONE (07:08)
[2019-08-02] MEDS: INSULIN LISPRO 1 UNIT/0.01 ML UNIT SQ SCH ×2 (07:09→11:48)
[2019-08-02] MEDS: metFORMIN 500 MG TAB.XL.24H PO SCH (08:25)
[2019-08-02] MEDS: cefTRIAXone 2 GM in DEXTROSE 5% IN WATER 50 ML IV SCH (08:26)
[2019-08-02] MEDS ORDERED: CYANOCOBALAMIN 1,000 MCG/ML VIAL SQ ONE (08:28)
[2019-08-02] MEDS: HYDROCHLOROTHIAZIDE 25 MG TABLET PO SCH (08:36)
[2019-08-02] MEDS: MONTELUKAST 10 MG TABLET PO SCH (08:36)
[2019-08-02] MEDS: LORazepam 1 MG TABLET PO PRN ×2 (08:36→13:17)
[2019-08-02] MEDS: TRIAMCINOLONE CRM 0.5% TUBE 15GM TOPICAL SCH (08:37)
[2019-08-02] MEDS: DULoxetine 30 MG CAPSULE PO SCH (08:37)
[2019-08-02] MEDS: OXYBUTYNIN CHLORIDE 5 MG TAB.XL.24H PO SCH (08:37)
[2019-08-02] MEDS: ENOXAPARIN 40 MG/0.4 ML SYRINGE SQ SCH (08:37)
[2019-08-03] MEDS ORDERED: CYANOCOBALAMIN (VITAMIN B-12) 500 MCG TABLET PO SCH (09:00)
== END 2019-08-02 14:00 | disposition home or self-care (01) | DRG 603 ==
LOC: ED 10:36 → MEDSUR 19:37
PROVIDERS: ADMIT Internal Medicine; ATTEND Internal Medicine

== ENCOUNTER 2024-12-01 16:02 | Inpatient (IN) ==
[2024-12-01] MEDS: 0.9 % SODIUM CHLORIDE 1,000 ML IV ONE (17:05)
[2024-12-01 17:17] LABS: Bacteria,Urine Many /hpf (0); Bilirubin,Urine Negative (Negative); Color,Urine Orange; Glucose,Urine (UA) Negative (Negative); Ketones,Urine 15(1+) mg/dL (Negative); Leukocyte Esterase,Urine Negative /uL (Negative); Mucus,Urine Few /hpf; PH,Urine 7.0 (5.0-9.0); Protein,Urine >=300 mg/dL (Negative); Specific Gravity,Urine 1.025 (1.000-1.035); Urobilinogen,Urine Negative
[2024-12-01 17:49] LABS: Basophils # (Auto) 0.05 K/mcL (0.00-0.30); Basophils % (Auto) 0.2 % (0.0-2.0); Eosinophils # (Auto) 0.06 K/mcL (0.00-0.70); Eosinophils % (Auto) 0.3 % (0.0-7.0); Hematocrit 43.7 % (34.1-44.9); Hemoglobin 13.7 g/dL (11.2-15.7); Lymphocytes # (Auto) 1.22 K/mcL (1.50-4.80); Lymphocytes % (Auto) 5.8 % (15.5-49.0); Mean Corpuscular HGB Conc 31.4 g/dL (31.0-36.0); Monocytes # (Auto) 1.53 K/mcL (0.10-0.90); Monocytes % (Auto) 7.3 % (1.0-12.0); Neutrophils % (Auto) 86.1 % (38.0-78.0); Platelet Count 236 K/mcL (140-440); RBC 4.08 M/mcL (3.59-5.38); WBC 21.1 K/mcL (4.5-11.0)
[2024-12-01 18:09] LABS: Anion Gap 13.0 (8.0-16.0); Blood Urea Nitrogen 20 mg/dL (8-23); Calcium 10.0 mg/dL (8.6-10.4); Carbon Dioxide 17 mmol/L (22-30); Chloride 103 mmol/L (96-108); Glucose 115 mg/dL (70-105); Potassium 4.3 mmol/L (3.3-5.1); Sodium 133 mmol/L (133-145)
[2024-12-01] MEDS: cefTRIAXone 1 GM VIAL IV ONE (18:25)
[2024-12-01] MEDS: CEFEPIME 2 GM VIAL IV ONE (19:02)
[2024-12-01] MEDS ORDERED: ONDANSETRON 4 MG/2 ML VIAL IV PRN (19:25)
[2024-12-01] MEDS ORDERED: SENNOSIDES 1 TABLET PO PRN (19:25)
[2024-12-01] MEDS ORDERED: ACETAMINOPHEN 325 MG TABLET PO PRN (19:25)
[2024-12-01] MEDS ORDERED: LACTULOSE 20 GM/30 ML ORAL.SOL PO PRN (19:25)
[2024-12-01] MEDS: 0.9 % SODIUM CHLORIDE 10 ML SYRINGE IV SCH (21:01)
[2024-12-02 06:19] LABS: Basophils # (Auto) 0.04 K/mcL (0.00-0.30); Basophils % (Auto) 0.3 % (0.0-2.0); Eosinophils # (Auto) 0.05 K/mcL (0.00-0.70); Eosinophils % (Auto) 0.3 % (0.0-7.0); Hematocrit 43.2 % (34.1-44.9); Hemoglobin 13.9 g/dL (11.2-15.7); Lymphocytes # (Auto) 1.52 K/mcL (1.50-4.80); Lymphocytes % (Auto) 10.6 % (15.5-49.0); Mean Corpuscular HGB Conc 32.2 g/dL (31.0-36.0); Monocytes # (Auto) 1.14 K/mcL (0.10-0.90); Monocytes % (Auto) 7.9 % (1.0-12.0); Neutrophils % (Auto) 80.7 % (38.0-78.0); Platelet Count 233 K/mcL (140-440); RBC 4.08 M/mcL (3.59-5.38); WBC 14.4 K/mcL (4.5-11.0)
[2024-12-02 06:37] LABS: ALT/SGPT 11 U/L (<40); AST/SGOT 14 U/L (<32); Albumin 3.3 gm/dL (3.2-5.2); Albumin/Globulin Ratio 1.3 (1.0-2.3); Alkaline Phosphatase 65 U/L (39-117); Anion Gap 10.0 (8.0-16.0); Bilirubin,Direct 0.2 mg/dL (<0.3); Bilirubin,Total 0.6 mg/dL (0.1-1.0); Blood Urea Nitrogen 19 mg/dL (8-23); Calcium 9.9 mg/dL (8.6-10.4); Carbon Dioxide 19 mmol/L (22-30); Chloride 104 mmol/L (96-108); Globulin 2.6 gm/dL (2.2-3.7); Glucose 106 mg/dL (70-105); Phosphorous 2.4 mg/dL (2.5-4.5); Potassium 4.1 mmol/L (3.3-5.1); Sodium 133 mmol/L (133-145); Triglycerides 49 mg/dL (<150); Uric Acid 8.4 mg/dL (2.5-8.0)
[2024-12-02 06:51] LABS: Estimated Average Glucose(eAG) 114 mg/dL; Hemoglobin A1C 5.6 % Hgb (4.0-6.0)
[2024-12-02] MEDS: ENOXAPARIN 40 MG/0.4 ML SYRINGE SQ SCH (08:06)
[2024-12-02] MEDS: CEFEPIME 2 GM VIAL IV SCH (09:25)
[2024-12-02] MEDS ORDERED: POLYETHYLENE GLYCOL 3350 17 GM PACKET PO PRN (17:11)
[2024-12-02] MEDS ORDERED: FUROSEMIDE 20 MG TABLET PO PRN (17:26)
[2024-12-02] MEDS: buPROPion 100 MG TAB.SR.12H PO SCH (17:56)
[2024-12-03 05:28] LABS: Basophils # (Auto) 0.06 K/mcL (0.00-0.30); Basophils % (Auto) 0.7 % (0.0-2.0); Eosinophils # (Auto) 0.20 K/mcL (0.00-0.70); Eosinophils % (Auto) 2.4 % (0.0-7.0); Hematocrit 37.9 % (34.1-44.9); Hemoglobin 12.3 g/dL (11.2-15.7); Lymphocytes # (Auto) 1.97 K/mcL (1.50-4.80); Lymphocytes % (Auto) 23.5 % (15.5-49.0); Mean Corpuscular HGB Conc 32.5 g/dL (31.0-36.0); Monocytes # (Auto) 0.92 K/mcL (0.10-0.90); Monocytes % (Auto) 11.0 % (1.0-12.0); Neutrophils % (Auto) 62.2 % (38.0-78.0); Platelet Count 219 K/mcL (140-440); RBC 3.64 M/mcL (3.59-5.38); WBC 8.4 K/mcL (4.5-11.0)
[2024-12-03 05:56] LABS: ALT/SGPT 12 U/L (<40); AST/SGOT 13 U/L (<32); Albumin 3.1 gm/dL (3.2-5.2); Albumin/Globulin Ratio 1.3 (1.0-2.3); Alkaline Phosphatase 55 U/L (39-117); Anion Gap 9.0 (8.0-16.0); Bilirubin,Direct < 0.2 mg/dL (0-0.3); Bilirubin,Total 0.3 mg/dL (0.1-1.0); Blood Urea Nitrogen 22 mg/dL (8-23); Calcium 9.9 mg/dL (8.6-10.4); Carbon Dioxide 21 mmol/L (22-30); Chloride 106 mmol/L (96-108); Globulin 2.3 gm/dL (2.2-3.7); Glucose 105 mg/dL (70-105); Phosphorous 2.7 mg/dL (2.5-4.5); Potassium 3.6 mmol/L (3.3-5.1); Sodium 136 mmol/L (133-145); Triglycerides 51 mg/dL (<150); Uric Acid 8.4 mg/dL (2.5-8.0)
[2024-12-03] MEDS: ENOXAPARIN 40 MG/0.4 ML SYRINGE SQ SCH ×2 (08:58→20:47)
[2024-12-03] MEDS: FLU VACC TS2025-26(6MOS UP)/PF 45 MCG/0.5 ML SYRINGE IM ONE (08:59)
[2024-12-03] MEDS: buPROPion 100 MG TAB.SR.12H PO SCH (09:03)
[2024-12-03] MEDS: VIBEGRON 75 MG PO SCH (11:15)
[2024-12-03] MEDS: PHENAZOPYRIDINE 200 MG TABLET PO SCH (14:21)
[2024-12-03] MEDS: CIPROFLOXACIN 500 MG TABLET PO SCH (20:47)
[2024-12-04 06:43] LABS: Basophils # (Auto) 0.05 K/mcL (0.00-0.30); Basophils % (Auto) 0.8 % (0.0-2.0); Eosinophils # (Auto) 0.24 K/mcL (0.00-0.70); Eosinophils % (Auto) 4.0 % (0.0-7.0); Hematocrit 37.3 % (34.1-44.9); Hemoglobin 11.9 g/dL (11.2-15.7); Lymphocytes # (Auto) 1.58 K/mcL (1.50-4.80); Lymphocytes % (Auto) 26.2 % (15.5-49.0); Mean Corpuscular HGB Conc 31.9 g/dL (31.0-36.0); Monocytes # (Auto) 0.49 K/mcL (0.10-0.90); Monocytes % (Auto) 8.1 % (1.0-12.0); Neutrophils % (Auto) 60.6 % (38.0-78.0); Platelet Count 220 K/mcL (140-440); RBC 3.44 M/mcL (3.59-5.38); WBC 6.0 K/mcL (4.5-11.0)
[2024-12-04 12:44] VITALS: TEMP 97; O2SAT 95
== END 2024-12-04 13:25 | DRG 690 ==
LOC: ED 16:02 → ICU 19:23 → MEDSUR 12-03 19:53
PROVIDERS: ADMIT Internal Medicine; ATTEND Internal Medicine